=== PATIENT | female | born 1995 | race Caucasian/White ===

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

== ENCOUNTER 2020-03-20 18:30 | Emergency (ER) | payer OTHER, MEDICAID ==
[~2020-03-20] VITALS: Ht 165.1 cm; Wt 108.9 kg
[~2020-03-20 18:30] MED LIST changes: +IBUP-1223 PO; -IBUP800T PO
[2020-03-20] MEDS ORDERED: LIDOCAINE-MPF 1%, 5ML INFIL ONE (19:00)
--- NOTE | 2020-03-20 19:20 | NUR ---
pt to room from lobby
[2020-03-20] MEDS ORDERED: LIDOCAINE-MPF 1%, 5ML ONE (19:44)
--- NOTE | 2020-03-20 19:46 | NUR ---
CALL TO L&D FOR FHT CHECK. L&D RN TO COME DOWN.
--- NOTE | 2020-03-20 19:55 | NUR ---
RN at bedside for Heart tones, baseline in the 150's, accels to 180.
[2020-03-20 20:18] VITALS: BP 114/72
== END 2020-03-20 20:38 | disposition home or self-care (01) ==
LOC: ED 20:30
DX: O26.893 Other specified pregnancy related conditions, third trimester (principal); L02.416 Cutaneous abscess of left lower limb; L02.214 Cutaneous abscess of groin; R00.0 Tachycardia, unspecified; Z3A.31 31 weeks gestation of pregnancy; Z87.11 Personal history of peptic ulcer disease
CPT/HCPCS: 10060; 99283

== ENCOUNTER 2020-03-22 14:27 | Emergency (ER) | payer OTHER, MEDICAID ==
[~2020-03-22] VITALS: Ht 165.1 cm; Wt 108.1 kg
--- NOTE | 2020-03-22 15:10 | NUR ---
pt resting in bed. vss. tolerated procedure well. wound has been repacked.
[2020-03-22 15:19] VITALS: BP 121/72
== END 2020-03-22 15:20 | disposition home or self-care (01) ==
LOC: ED 15:09
DX: L02.416 Cutaneous abscess of left lower limb (principal)
CPT/HCPCS: 99282

== ENCOUNTER 2020-03-24 13:11 | Emergency (ER) | payer MEDICAID, OTHER ==
[~2020-03-24] VITALS: Ht 165.1 cm; Wt 108.3 kg
[2020-03-24 13:13] VITALS: BP 128/89
--- NOTE | 2020-03-24 14:34 | NUR ---
THIS RN AT BEDSIDE DURING WOUND CARE WITH MARK FERNANDEZ. PT TBDC.
== END 2020-03-24 14:48 | disposition home or self-care (01) ==
LOC: ED 13:26
DX: L02.416 Cutaneous abscess of left lower limb (principal)
CPT/HCPCS: 99282